=== PATIENT | male | born 1970 | race Caucasian/White ===

== ENCOUNTER 2019-01-18 10:25 | Day surgery (SDC) | payer BC ==
[2019-01-15 11:42] VITALS: BMI 28.0
[2019-01-18] MEDS ORDERED: MIDAZOLAM HCL 2 MG/2 ML SINGLE DOSE VIAL ONE (14:33)
[2019-01-18] MEDS ORDERED: PROPOFOL 20 ML ONE ×2 (14:33)
[2019-01-18] MEDS ORDERED: ceFAZolin SODIUM 1 GM VIAL ONE (16:07)
[2019-01-18] MEDS ORDERED: ONDANSETRON 4 MG/2 ML VIAL IVPUSH PRN (16:20)
[2019-01-18] MEDS ORDERED: oxyCODONE HCL 5 MG TABLET PO PRN (16:20)
[2019-01-18] MEDS ORDERED: PROMETHAZINE HCL 25 MG/1 ML VIAL IVPUSH PRN (16:20)
[2019-01-18] MEDS ORDERED: LACTATED RINGERS SOLUTION 1,000 ML IV SCH (16:30)
[2019-01-18 19:57] VITALS: BP 133/78; PULSE 76; TEMP 97.9
--- NOTE | 2019-01-19 09:18 | OP ---
DATE OF OPERATION: 01/18/2019 LOCATION: [facility]. 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 POSTOPERATIVE DIAGNOSIS: Left elbow biceps tendon distal rupture. PROCEDURE: Re-insertion of left elbow distal biceps tendon. FINDINGS: Avulsed tendon off the radial tuberosity. DESCRIPTION OF PROCEDURE: Informed consent was obtained. Patient was taken to the operating room where the left upper extremity was prepped and draped in a sterile fashion. Tourniquet was placed to the upper arm and inflated to 250 mmHg. Horizontal incision was made 2 cm distal to the elbow crease volarly. Incision was made. Careful attention was made to avoid neurovascular structures. Biceps tendon was identified and removed from surrounding scar tissue. Two No. 2 FiberWires were placed with a Krackow interlocking stitch, tied to the ToggleLoc device in the distal portion. Radial insertion of the biceps was identified, cleared of soft tissue, and a guidewire was placed through the tavorvhl-yr-kyhxxjpii surfaces with the arm fully supinated. An 8-mm reamer was placed through the anterior cortex followed by a 4-mm reamer to the posterior cortex. ToggleLoc device was placed through the mrfdrnch-lc-gcpybwjhy cortex and turned 90 degrees locking it along the posterior cortex. It was then tightened bringing the biceps tendon into the tunnel allowing for the tendon to be inside bleeding bone. This was then tied down into place. Wound was irrigated with copious amounts of irrigation in multiple areas including this final step. It was then closed with 2-0 Vicryl and 3-0 Prolene. Sterile dressing and splint were placed, and the patient was transferred to recovery without complication. The PA listed above was present and assisted at surgery. Their presence was absolutely medically necessary for the completion of the procedure. They helped hold the arthroscopy, pass instruments (and implants when indicated) and the procedure could not have been completed without their assistance. BRYAN CRUZ M.D. [id number]
== END 2019-01-18 19:30 | disposition home or self-care (01) ==
LOC: FASU 10:25
PROVIDERS: ATTEND Orthopaedic Surgery
PROC: 0LM40ZZ Reattachment of Left Upper Arm Tendon, Open Approach (ICD-10-PCS; principal; 2019-01-18 16:22)
DX: S46.211A Strain of muscle, fascia and tendon of other parts of biceps, right arm, initial encounter (principal); X58.XXXA Exposure to other specified factors, initial encounter; Y93.9 Activity, unspecified; Y92.9 Unspecified place or not applicable
CPT/HCPCS: 94760